=== PATIENT | male | born 1975 | race Caucasian/White ===

== ENCOUNTER 2025-04-26 00:05 | Inpatient (IN) | payer OTHER ==
[~2025-04-26] VITALS: Ht 165.1 cm; Wt 63.8 kg
[2025-04-26] VITALS (9 sets, daily range): BP systolic 97–117; BP diastolic 63–73; TEMP 97.7–99.2; O2SAT 93–100
[2025-04-26 00:57] LABS: PLATELET COUNT (AUTO) 277 K/uL (150-450); RED BLOOD CELL COUNT(AUTO) 4.36 MIL/uL (4.5-6.0); RED CELL DISTRIBUTION WIDTH 13.7 % (11.5-15.0); WHITE BLOOD COUNT (AUTO) 9.0 K/uL (4.3-11.0)
[2025-04-26 01:12] LABS: CALCIUM, SERUM 9.4 mg/dL (8.5-10.1); CREATININE 0.4 mg/dL (0.6-1.3); SODIUM SERUM 145.0 mmol/L (136-145); UREA NITROGEN, BLOOD 20.0 mg/dL (7-18)
[2025-04-26 01:16] LABS: ASPARTATE AMINOTRANSFERASE 23.0 U/L (15-37); TOTAL PROTEIN, SERUM 7.6 g/dL (6.4-8.2)
[2025-04-26] MEDS ORDERED: IPRATROPIUM NEB FS 0.5 MG/2.5 ML AMPUL.NEB ONE (01:26)
[2025-04-26] MEDS ORDERED: ALBUTEROL FS 2.5 MG/0.5 ML VIAL.NEB ONE (01:26)
[2025-04-26] MEDS: IV NS 0.9% 1,000 ML BAG IV ONE (01:28)
[2025-04-26] MEDS: ALBUTEROL FS 2.5 MG/0.5 ML VIAL.NEB NEB STA (01:30)
[2025-04-26] MEDS: IPRATROPIUM NEB FS 0.5 MG/2.5 ML AMPUL.NEB NEB STA (01:30)
[2025-04-26] MEDS ORDERED: MIDODRINE HCL (5MG) 5 MG TABLET ONE (01:48)
[2025-04-26] MEDS: MIDODRINE HCL (5MG) 5 MG TABLET GT STA (01:58)
[2025-04-26 02:11] LABS: ABG BASE EXCESS 4.7 mmol/L (-2.0-3.0); ABG OXYGEN SATURATION 97.7 % (94.0-98.0); ABG PCO2 49.3 mmHg (35.0-48.0); ABG PH 7.407 (7.350-7.450); ABG PO2 106.8 mmHg (83.0-108.0); ABG TOTAL HEMOGLOBIN 13.1 G/dL (13.5-17.5); FLOW, BLOOD GAS 4.00 L/min (0.00-30.00); FRACTIONATED INSPIRED OXYGEN 36.0 %; SITE, ABG LEFT BRACHIAL
[2025-04-26] MEDS ORDERED: ONDANSETRON HCL/PF 4 MG/2 ML VIAL IVP PRN (03:00)
[2025-04-26] MEDS ORDERED: MAG HYDROX/AL HYDROX/SIMETH 30 ML UDC PO PRN (03:00)
[2025-04-26] MEDS ORDERED: MAGNESIUM HYDROXIDE 30 ML UDC PO PRN (03:00)
[2025-04-26] MEDS ORDERED: IPRATROPIUM NEB FS 0.5 MG/2.5 ML AMPUL.NEB NEB PRN ×2 (03:00→18:00)
[2025-04-26] MEDS ORDERED: ALBUTEROL FS 2.5 MG/3 ML VIAL.NEB NEB PRN ×2 (03:00→18:00)
[2025-04-26] MEDS ORDERED: NITROGLYCERIN 0.4 MG/TAB BOTTLE SL PRN (03:00)
[2025-04-26] MEDS: ENOXAPARIN SODIUM 40 MG/0.4 ML DISP.SYRIN SQ SCH (03:42)
[2025-04-26] MEDS ORDERED: GLUCERNA 1.5 1,000 ML BOTTLE GT PRN (07:00)
[2025-04-26 07:28] LABS: PLATELET COUNT (AUTO) 260 K/uL (150-450); RED BLOOD CELL COUNT(AUTO) 4.22 MIL/uL (4.5-6.0); RED CELL DISTRIBUTION WIDTH 13.7 % (11.5-15.0); WHITE BLOOD COUNT (AUTO) 9.1 K/uL (4.3-11.0)
[2025-04-26 07:44] LABS: ASPARTATE AMINOTRANSFERASE 20 U/L (15-37); CALCIUM, SERUM 9.3 mg/dL (8.5-10.1); CREATININE 0.4 mg/dL (0.6-1.3); PHOSPHORUS 4.4 mg/dL (2.5-4.9); SODIUM SERUM 144 mmol/L (136-145); TOTAL PROTEIN, SERUM 7.6 g/dL (6.4-8.2); UREA NITROGEN, BLOOD 17 mg/dL (7-18)
[2025-04-26] MEDS ORDERED: MELA5TAB GT (08:09)
[2025-04-26] MEDS ORDERED: MAGN400O6 GT (08:09)
[2025-04-26] MEDS ORDERED: VOLTAREN GEL TP (08:09)
[2025-04-26] MEDS ORDERED: DIPH25TA62 GT (08:09)
[2025-04-26] MEDS ORDERED: ASCO500T21 GT (08:09)
[2025-04-26] MEDS ORDERED: IPRA4AER IH ×2 (08:09)
[2025-04-26] MEDS ORDERED: ZINC50TA69 GT (08:09)
[2025-04-26] MEDS ORDERED: AMIN30LI66 GT (08:09)
[2025-04-26] MEDS ORDERED: NA P133E RC (08:09)
[2025-04-26] MEDS ORDERED: IVER3TAB2 GT (08:09)
[2025-04-26] MEDS ORDERED: PANT40SU2 GT (08:09)
[2025-04-26] MEDS ORDERED: MULT-213 GT (08:09)
[2025-04-26] MEDS ORDERED: CHLO473M2 PO (08:09)
[2025-04-26] MEDS ORDERED: CITA20TA19 GT (08:09)
[2025-04-26] MEDS ORDERED: MIDO5TAB4 GT (08:09)
[2025-04-26] MEDS ORDERED: IBUP-1953 GT (08:09)
[2025-04-26] MEDS ORDERED: DOCU100T2 GT (08:09)
[2025-04-26] MEDS ORDERED: ACET325T53 PO (08:09)
[2025-04-26] MEDS ORDERED: TRAZ-182 GT (08:09)
[2025-04-26] MEDS ORDERED: CARB15DR2 EACHEYE (08:09)
[2025-04-26] MEDS ORDERED: GABAPENTIN GT (08:09)
[2025-04-26] MEDS ORDERED: *INS REG3 SQ (08:09)
[2025-04-26] MEDS ORDERED: BISA10SU61 RC (08:09)
[2025-04-26] MEDS ORDERED: HYDR-3642 GT (08:09)
[2025-04-26] MEDS ORDERED: NA PHOS,M-B/NA PHOS,DI-BA 1 EA ENEMA RC PRN (17:30)
[2025-04-26] MEDS ORDERED: MIDODRINE HCL (5MG) 5 MG TABLET GT PRN (17:30)
[2025-04-26] MEDS ORDERED: MAGNESIUM HYDROXIDE 30 ML UDC GT PRN ×2 (17:30→17:35)
[2025-04-26] MEDS ORDERED: DEXTROSE 50%-WATER 50 ML DISP.SYRIN IV PRN (17:30)
[2025-04-26] MEDS ORDERED: BISACODYL SUPP (10 MG) 10 MG/SUPP.RECT SUPP.RECT RC PRN (17:30)
[2025-04-26] MEDS ORDERED: MAG HYDROX/AL HYDROX/SIMETH 30 ML UDC GT PRN (17:32)
[2025-04-26] MEDS ORDERED: CARBOXYMETHYLCELLULOSE SODIUM 1 EA TUBE EACHEYE PRN (18:00)
[2025-04-26] MEDS: BLOOD SUGAR DIAGNOSTIC 1 EACH STRIP IN SCH (18:05)
[2025-04-26] MEDS: GLUCERNA 1.5 1,000 ML BOTTLE NG PRN (18:08)
[2025-04-26] MEDS ORDERED: GLUCERNA 1.2 1,000 ML BOTTLE NG PRN (18:30)
[2025-04-26] MEDS: ALBUTEROL FS 2.5 MG/3 ML VIAL.NEB NEB SCH (21:08)
[2025-04-26] MEDS: IPRATROPIUM NEB FS 0.5 MG/2.5 ML AMPUL.NEB NEB SCH (21:08)
[2025-04-26] MEDS: ASCORBIC ACID 500 MG TABLET GT SCH (21:20)
[2025-04-26] MEDS: TRAZODONE 50 MG TABLET GT SCH (21:20)
[2025-04-26] MEDS: BISACODYL SUPP (10 MG) 10 MG/SUPP.RECT SUPP.RECT RC PRN (21:34)
[2025-04-26] MEDS: ACETAMINOPHEN 325 MG TABLET PO PRN (21:34)
[2025-04-27] VITALS (10 sets, daily range): BP systolic 104–134; BP diastolic 55–74; TEMP 97.5–98.4; O2SAT 96–100
[2025-04-27] MEDS: INSULIN REGULAR, HUMAN 100 UNIT/ML 3 ML VIAL SQ PRN (00:11)
[2025-04-27 07:06] LABS: PLATELET COUNT (AUTO) 291 K/uL (150-450); RED BLOOD CELL COUNT(AUTO) 4.16 MIL/uL (4.5-6.0); RED CELL DISTRIBUTION WIDTH 13.6 % (11.5-15.0); WHITE BLOOD COUNT (AUTO) 8.7 K/uL (4.3-11.0)
[2025-04-27 07:22] LABS: CALCIUM, SERUM 9.7 mg/dL (8.5-10.1); CREATININE 0.5 mg/dL (0.6-1.3); PHOSPHORUS 4.5 mg/dL (2.5-4.9); SODIUM SERUM 147.0 mmol/L (136-145); UREA NITROGEN, BLOOD 21.0 mg/dL (7-18)
[2025-04-27] MEDS: CHLORHEXIDINE GLUCONATE 15 ML UDC MM SCH (08:57)
[2025-04-27] MEDS: DOCUSATE SODIUM LIQ 100 MG/10 ML UDC GT SCH (08:57)
[2025-04-27] MEDS: CITALOPRAM HYDROBROMIDE 20 MG TABLET GT SCH (08:57)
[2025-04-27] MEDS: MULTIVIT W/MINERALS 1 TAB TABLET GT SCH (08:58)
[2025-04-27] MEDS: ZINC SULFATE 220 MG CAPSULE GT SCH (08:58)
[2025-04-27] MEDS: PANTOPRAZOLE 40 MG/PACK PACK GT SCH (08:58)
[2025-04-27] MEDS: GABAPENTIN 300 MG CAPSULE GT SCH (08:58)
[2025-04-27] MEDS: POTASSIUM CHLORIDE 20 MEQ POWDER PACKET GT ONE (13:12)
[2025-04-27] MEDS ORDERED: ENOX40DI SQ (15:03)
== END 2025-04-27 18:36 | DRG 142 ==
LOC: ER 00:08 → TELE1 03:01 → MEDSG1 04-27 10:34
PROVIDERS: ADMIT Nurse Practitioner Acute Care; ATTEND Nurse Practitioner Acute Care
DX: J84.10 Pulmonary fibrosis, unspecified (principal); G61.0 Guillain-Barre syndrome; R13.10 Dysphagia, unspecified; Z93.0 Tracheostomy status; G82.20 Paraplegia, unspecified; J96.10 Chronic respiratory failure, unspecified whether with hypoxia or hypercapnia; E11.9 Type 2 diabetes mellitus without complications; I10 Essential (primary) hypertension; R07.9 Chest pain, unspecified; F41.9 Anxiety disorder, unspecified; Z93.1 Gastrostomy status
CPT/HCPCS: 31720; 36415; 36600; 70450-TC; 71045-TC; 71250-TC; 80048-TC; 80053-TC; 80076-TC; 82803-TC; 82962-TC; 83735-TC; 84100-TC; 84443-TC; 84484-TC; 85025-TC; 86140-TC; 87081-TC; 93307-TC; 94640-TC; 94799-TC; 99082-TC; A4623; A7526; G0378; J1650; J1815; J2919; J7030; Q0177